=== PATIENT | male | born 1955 | race Two or more races ===

== ENCOUNTER 2017-06-29 17:05 | Emergency (ER) | payer OTHER ==
[~2017-06-29] VITALS: Ht 177.8 cm; Wt 66.2 kg
[~2017-06-29 17:05] MED LIST: ALBUTEROL SULF8.5 GM PO; ASPIRIN CHEW81 MG PO; CARAFATE1 GM/10 ML PO; MIRALAX17 GM PEG; PANTOPRAZOLE SO40 MG PO; PLAVIX75 MG PO; RYTHMOL150 MG PO; VERAPAMIL ER120 MG PO; VIBRAMYCIN TAB100 MG PO; Z PROPAFENONE PO; Z.0.ASPIRIN CHEW81 M PO; Z.0.CLEOCIN HCL300 M PO; Z.0.PLAVIX75 MG PO; Z.0.VALTREX1000 MG PO; [UNRECOGNIZED DRUG - OTHER] PO
--- OUTSIDE RECORDS SUMMARY | 2017-06-29 17:09 | XMS REPORT | Clinical Summary ---
Author Author [facility] Organization [facility] Address Unknown Phone Unavailable Care Team Providers Care Digital Product Specialist Name Role Phone Julius Haney DO PCP Allergies Active Allergy Reactions Severity Noted Date Comments Codeine Anxiety Low 07/20/2015 Current Medications Prescription Sig. Disp. Refills Start End Date Status Date propafenone (RHTHYMOL) Take 150 mg by mouth Active 150 MG tablet every 8 (eight) hours. clopidogrel (PLAVIX) 75 Take 75 mg by mouth Active mg tablet daily. verapamil (CALAN) 120 MG Take 120 mg by mouth Active tablet daily. linaclotide (LINZESS) 145 Take 145 mcg by mouth Active mcg capsule daily. pantoprazole (PROTONIX) Take 40 mg by mouth Active 40 MG EC tablet daily. FLUVIRIN 8484-0341, PF, 11/22/19 Active 45 mcg (15 mcg x 3)/0.5 16 mL syringe LYRICA 75 mg capsule as needed. 10/04/19 Active 16 neomycin-polymyxin 3 (three) times a day. Active B-dexameth (MAXITROL) 3.5 mg/g-10,000 unit/g-0.1 % ointment diazePAM (VALIUM) 5 MG Take 5 mg by mouth every Active tablet 6 (six) hours as needed for anxiety. cephalexin (KEFLEX) 500 Take 500 mg by mouth 4 Active MG capsule (four) times a day. ranitidine (ZANTAC) 150 Take 1 tablet (150 mg 30 tablet 3 06/26/19 06/26/19 Active MG tabletIndications: total) by mouth 2 (two) 18 19 Chronic otitis media of times a day. both ears ciprofloxacin-dexamethaso Administer 4 drops into 7.5 mL 1 09/08/19 09/15/19 ne (CIPRODEX) 0.3-0.1 % both ears 2 (two) times a 17 17 otic day for 7 days. suspensionIndications: 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 ofloxacin (FLOXIN) 0.3 % Administer 5 drops to the 10 mL 0 02/21/19 02/28/19 otic solutionIndications: right ear 2 (two) times a 18 Chronic otitis media of day for 7 days. both ears ofloxacin (FLOXIN) 0.3 % Administer 5 drops into 10 mL 1 05/16/19 otic solutionIndications: both ears daily for 10 18 18 Chronic tubotympanic days. suppurative otitis media of both ears amoxicillin (AMOXIL) 400 Take 5 mL (400 mg total) 150 mL 0 05/30/19 06/09/19 mg/5 mL by mouth 3 (three) times suspensionIndications: a day for 10 days. 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 SSS (sick sinus syndrome) 07/20/2015 Encounters Date Type Specialty Care Team Description 06/25/2017 Office Visit Otolaryngology Valentin Meek MD Chronic otitis media of both ears (Primary Dx); Sensorineural hearing loss (SNHL) of right ear, unspecified hearing status on contralateral side 05/29/2017 Office Visit Otolaryngology Valentin Meek MD 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 (Primary Dx) 05/15/2017 Office Visit Otolaryngology Valentin Meek MD 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 (Primary Dx) 02/21/2017 Office Visit Otolaryngology Valentin Meek MD Dysphagia, cricopharyngeal (Primary Dx); Chronic otitis media of both ears 09/21/2016 Office Visit Otolaryngology Valentin Meek MD Dysphagia, cricopharyngeal (Primary Dx); Chronic otitis media of both ears 09/07/2016 Office Visit Otolaryngology Valentin Meek MD Dysphagia, cricopharyngeal (Primary Dx); 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 after 06/28/2016 Family History Medical History Relation Name Comments Heart attack Father Heart disease Father Muscular dystrophy Mother Relation Name Status Comments Father Mother Social History Tobacco Use Types Packs/Day Years Used Date Former Smoker Smokeless Tobacco: Never Used Comments: quit 30 years ago Alcohol Use Drinks/Week oz/Week Comments No Sex Assigned at Date Recorded Not on file Last Filed Vital Signs Vital Sign Reading Time Taken Blood Pressure 110/75 05/29/2017 1:30 PM CDT Pulse 96 05/29/2017 1:30 PM CDT Temperature - - Respiratory Rate - - Oxygen Saturation - - Inhaled Oxygen - - Concentration Weight 64.9 kg (143 lb) 06/25/2017 2:50 PM CDT Height 177.8 cm (5' 10") 06/25/2017 2:50 PM CDT Body Mass Index 20.52 06/25/2017 2:50 PM CDT Plan of Treatment Health Maintenance Due Date Last Done Comments COLON CANCER SCREENING 2007 SHINGRIX VACCINE (#1) 2007 ZOSTER VACCINE 2017 INFLUENZA VACCINE 09/05/2017 Implants Implanted Type Area Environmental Conservation Officer Device Expiration Model / Identifier Date Serial / Lot Setrox S Steroid-Eluting Bipolar IPM N/A: N/A [employer] 2017 350 974 / Implantable Endocardial Bradycardia IMPLANT [id number] / Lead With Active Fixation DEVICES [id number] Electrically Active [place] 1.8mm Connector Is-1 Straight Ring Electrode Insulation Silicon Rubber 6.6fr 6.7fr Steroid [place] Setrox S 53 10mm 45/53/60cm - [id number] Implanted: 07/20/2015 (Quantity not on file) Setrox S Steroid-Eluting Bipolar IPM N/A: N/A [employer] 2017 350 974 / Implantable Endocardial Bradycardia IMPLANT [id number] / Lead With Active Fixation DEVICES [id number] Electrically Active [place] 1.8mm Connector Is-1 Straight Ring Electrode Insulation Silicon Rubber 6.6fr 6.7fr Steroid [place] Setrox S 53 10mm 45/53/60cm - [id number] Implanted: 07/20/2015 (Quantity not on file) Bayron Alves With Cls With IPM N/A: N/A [employer] 2016 [id number] / Home Monitoring - [id number] PACEMAKERS [id number] / Implanted: 07/20/2015 (Quantity not [id number] on file) Results Not on fileafter 06/28/2016 Insurance Payer Benefit Subscriber ID Type Phone Address Plan / Group TEXANPLUS TEXANPLUS xxxxxxxxx HMO MCR MYOTONIC DYSTROPHY MYOTONIC xxxxxx Indemnity DYSTROPHY SECONDARY MDA,MYOTONIC Other Other Home: [id number] [place] [address]
== END 2017-06-29 18:04 | disposition home or self-care (01) ==
LOC: ER 17:05
DX: Z00.6 Encounter for examination for normal comparison and control in clinical research program (principal); G71.0 Muscular dystrophy
CPT/HCPCS: 99282

== ENCOUNTER 2017-07-08 13:53 | Observation (INO) | payer OTHER ==
[~2017-07-08] VITALS: Ht 177.8 cm; Wt 60.3 kg
[2017-07-08] MEDS ORDERED: MIDAZOLAM HCL 2 MG/2 ML VIAL ONE (13:56)
[2017-07-08] MEDS ORDERED: FENTANYL CITRATE/PF 100MCG/2 ML INJ ONE (13:56)
--- OUTSIDE RECORDS SUMMARY | 2017-07-08 13:58 | XMS REPORT | Continuity of Care Document ---
Author Author [facility] Organization [facility] Address [address] [place] [address] Phone Unavailable Care Team Providers Care Lathe Winder Name Role Phone SHANNAN PÉREZ MD PCP Insurance Providers Guarantor Isaiah Maher Address [address] [place] [address] Email [email or web address] Payer [place] [employer] Policy Number [id number] Subscriber's Name Isaiah Maher Relationship 18 Self / Same As Patient Group Number [id number] Group Name [employer] - Medicare Advantage Divis Effective Date 16 Advance Directives Directive Response Recorded Date/Time Does the patient have an advance directive? No 02/24/16 7:30pm If yes, is advance directive on file with [facility]? No 02/24/16 7:30pm If not on file with [facility] will patient provide a copy? No 02/24/16 7:30pm Did patient receive Notice of Privacy Practices? Yes 03/11/10 7:30pm Did patient receive patient rights and responsibilities? Yes 03/11/10 7:30pm Problems Medical Problem Onset Date Status Dysphagia Unknown Partial small bowel obstruction 07/25/2014 Acute Medications Current Home Medications Medication Dose Units Route Directions Days Qty Instructions Start Date Aspirin (Aspirin Chew) 81 Mg Chew 81 Mg Oral Daily 30 Tab Clopidogrel Bisulfate (Plavix) 75 Mg Tablet 75 Mg Oral Daily 30 Tab Pantoprazole Sodium (Protonix) 40 Mg Tablet.dr 40 Mg Oral Twice Daily Before Meals Polyethylene Glycol 3350 (Miralax) 17 Gm Powd.pack Peg Tube Daily Propafenone Hcl (Rythmol) 150 Mg Tablet 150 Mg Oral Three Times A Day Sucralfate (Carafate) 1 Gm/10 Ml Oral.susp 1 Gm Oral Before Meals And At Bedtime Verapamil Hcl (Verapamil Er) 120 Mg Cap24h.pel 120 Mg Oral Daily Past Home Medications Medication Directions Ordered Status Albuterol Sulfate (Albuterol Sulfate Hfa) 8.5 Gm Hfa.aer.ad, 1 Inh Oral As Needed as needed for Shortness Of Breath Discontinued Aspirin (Aspirin Chew) 81 Mg Chew, 81 Mg Oral Daily Discontinued Captopril 25 Mg Tablet, 25 Mg Oral Daily Discontinued Clindamycin Hcl (Cleocin Hcl) 300 Mg Capsule, 300 Mg Oral Every 6 Hours Discontinued Doxycycline Hyclate (Vibramycin Tablet) 100 Mg Tab, 100 Mg Oral Twice A Day Discontinued Valacyclovir Hcl (Valtrex) 1,000 Mg Tablet, 1000 Mg Oral Twice A Day Discontinued Social History Social History Problem Response Recorded Date/Time Onset Date Status Hx Psychiatric Problems No 02/24/2016 7:30pm Not Applicable Not Applicable Hx Eating Disorder No 02/24/2016 7:30pm Not Applicable Not Applicable Hx Substance Use Disorder No 02/24/2016 7:30pm Not Applicable Not Applicable Hx Depression No 02/24/2016 7:30pm Not Applicable Not Applicable Hx Alcohol Use No 02/24/2016 7:30pm Not Applicable Not Applicable Hx Substance Use Treatment No 02/24/2016 7:30pm Not Applicable Not Applicable Hx Physical Abuse No 02/24/2016 7:30pm Not Applicable Not Applicable Hospital Discharge Instructions No hospital discharge instruction information available. Plan of Care Discharge Date 06/29/17 6:04pm Disposition HOME, SELF-CARE Condition at Discharge Stable Instructions/Education Provided GI Tube Care Forms Provided Work/School Excuse Prescriptions See Medication Section Referrals SHANNAN PÉREZ MD Address: [address] [place] [id number] Additional Instructions/Education HAVE YOUR STORE PERSON DOCTOR LOOK AT YOUR [facility] NEXT WEEK, OR COME BACK TO ed IF HAVING PAIN, LEAKING AROUND THE TUBE Functional Status No functional status information available. Allergies, Adverse Reactions, Alerts Allergen Type Severity Reaction Status Last Updated Codeine Allergy Mild Active 03/11/10 Immunizations No immunization information available. Vital Signs Acute Vital Signs Vital Response Date/Time Height 5 ft 10 in 06/29/2017 5:20pm Weight 146 lb 06/29/2017 5:20pm Body Mass Index 20.9 kg/m^2 06/29/2017 5:20pm Results No relevant diagnostic test, laboratory data and/or discharge summary information available. Procedures No procedure information available. Encounters Encounter Location Arrival/Admit Date Discharge/Depart Date Attending Provider Departed Emergency Room [facility] 06/29/17 5:05pm 6:04pm ANY CONN DO
--- OUTSIDE RECORDS SUMMARY | 2017-07-08 13:58 | XMS REPORT | Clinical Summary ---
Author Author [facility] Organization [facility] Address Unknown Phone Unavailable Care Team Providers Care Housemaid Name Role Phone Julius Haney DO PCP [...] Active 40 MG EC tablet daily. FLUVIRIN 4560-4244, PF, 11/22/19 Active 45 mcg (15 mcg [...] suppurative otitis media of both ears after 07/07/2016 Family History Medical History Relation Name Comments [...] INFLUENZA VACCINE 09/05/2017 Implants Implanted Type Area Cross Country Coach Device Expiration Model / Identifier Date Serial / Lot Setrox S Steroid-Eluting Bipolar IPM N/A: N/A [employer] 2017 350 974 / Implantable Endocardial Bradycardia IMPLANT [id number] / Lead With Active Fixation DEVICES [id number] Electrically Active [place] 1.8mm Connector Is-1 Straight Ring Electrode Insulation Silicon Rubber 6.6fr 6.7fr Steroid [place] Setrox S 53 10mm 45/53/60cm - [id number] Implanted: 07/20/2015 (Quantity not on file) Setrox S Steroid-Eluting Bipolar IPM N/A: N/A [employer] 2017 350 974 / Implantable Endocardial Bradycardia IMPLANT [id number] / Lead With Active Fixation DEVICES [id number] Electrically Active [place] 1.8mm Connector Is-1 Straight Ring Electrode Insulation Silicon Rubber 6.6fr 6.7fr Steroid [place] Setrox S 53 10mm 45/53/60cm - [id number] Implanted: 07/20/2015 (Quantity not on file) Bayron Alves With Cls With IPM N/A: N/A [employer] 2016 727858 / Home Monitoring - [id number] PACEMAKERS [id number] / Implanted: 07/20/2015 (Quantity not [id number] on file) Results Not on fileafter 07/07/2016 Insurance Payer Benefit Subscriber ID Type Phone Address Plan / Group TEXANPLUS TEXANPLUS xxxxxxxxx HMO MCR MYOTONIC DYSTROPHY MYOTONIC xxxxxx Indemnity DYSTROPHY SECONDARY MDA,MYOTONIC Other Other Home: [id number] [place] [address]
[2017-07-08] MEDS ORDERED: ONDANSETRON HCL INJ 2 MG/ML VIAL IV STA (14:13)
[2017-07-08] MEDS ORDERED: SODIUM CHLORIDE 0.9% 1000ML 1,000 ML IV STA (14:13)
[2017-07-08] MEDS ORDERED: GLUCAGON FOR INJ 1 MG VIAL ONE (14:40)
[2017-07-08] MEDS: SODIUM CHLORIDE 0.9% 1000ML 1,000 ML IV SCH ×4 (14:45→20:21)
[2017-07-08 14:52] LABS: BASOPHILS % 0.6 % (0.0-1.0); EOSINOPHILS % 0.3 % (0.0-6.0); HEMATOCRIT 52.5 % (38.2-49.6); HEMOGLOBIN 17.5 g/dL (14.0-18.0); LYMPHOCYTES # (AUTO) 1.7 (1.0-3.2); LYMPHOCYTES % 24.4 % (18.0-39.1); MEAN CORPUSCULAR HEMOGLOBIN 30.5 pg (28-32); MEAN CORPUSCULAR HGB CONC 33.3 g/dL (31-35); MEAN CORPUSCULAR VOLUME 91.5 fL (81-99); MONOCYTES # (AUTO) 0.8 (0.2-0.8); MONOCYTES % 11.4 % (4.4-11.3); NEUTROPHILS # (AUTO) 4.5 (2.1-6.9); NEUTROPHILS % 63.2 % (38.7-80.0); PLATELET COUNT 180 x10e3/uL (140-360); RED BLOOD COUNT 5.74 x10e6/uL (4.3-5.7); RED CELL DISTRIBUTION WIDTH 13.1 % (11.7-14.4)
--- NOTE | 2017-07-08 14:56 | Diagnostic Imaging Report ---
EXAMINATION: CHEST SINGLE (PORTABLE) INDICATION: \S\ERMD ORDER \S\[id number] \S\1436 \S\Y COMPARISON: Chest radiograph 02/24/2016 FINDINGS: AP view TUBES and LINES: 2-lead pacemaker device overlying the left upper hemithorax with leads overlying the right atrial appendage and right ventricle are unchanged in position. LUNGS: Lungs are well inflated. Lungs are clear. Mild central pulmonary vascular congestion. PLEURA: No pleural effusion or pneumothorax. HEART AND MEDIASTINUM: Stable mild enlargement of the cardiac silhouette. BONES AND SOFT TISSUES: No acute osseous lesion. Soft tissues are unremarkable. UPPER ABDOMEN: No free air under the diaphragm. IMPRESSION: Stable mild cardiomegaly with associated central pulmonary congestion. Signed by: Dr. Britney Vo M.D. on 07/08/2017 2:53 PM
[2017-07-08] MEDS ORDERED: GLUCAGON FOR INJ 1 MG VIAL IV ONE ×2 (15:00→16:45)
[2017-07-08 15:06] LABS: INR 1.09; PROTHROMBIN TIME 13.3 seconds (11.9-14.5)
[2017-07-08 15:07] LABS: PARTIAL THROMBOPLASTIN TIME 26.9 seconds (23.8-35.5)
[2017-07-08 15:18] LABS: ALANINE AMINOTRANSFERASE 31 IU/L (0-55); ALBUMIN 3.9 g/dL (3.5-5.0); ALBUMIN/GLOBULIN RATIO 0.9 (0.8-2.0); ALKALINE PHOSPHATASE 97 IU/L (40-150); AMYLASE 84 U/L (25-125); ANION GAP 14.6 mmol/L (8-16); BLOOD UREA NITROGEN 18 mg/dL (7-26); BUN/CREATININE RATIO 23 (6-25); CALCIUM 11.2 mg/dL (8.4-10.2); CARBON DIOXIDE 33 mmol/L (22-29); CHLORIDE 100 mmol/L (98-107); CREATINE KINASE 73 IU/L (30-200); CREATININE, SERUM 0.78 mg/dL (0.72-1.25); EST GLOMERULAR FILTRATION RATE > 60 ML/MIN (60-); GLUCOSE 112 mg/dL (74-118); LIPASE 16 U/L (8-78); MAGNESIUM 2.1 MG/DL (1.3-2.1); POTASSIUM 4.6 mmol/L (3.5-5.1); SODIUM 143 mmol/L (136-145)
[2017-07-08] MEDS ORDERED: PIPER-TAZ 3.375 GM 50 ML IV STA (15:22)
--- OUTSIDE RECORDS SUMMARY | 2017-07-08 15:43 | XMS REPORT ---
Author Author [facility] Address Unknown Phone Unavailable Care Team Providers Care Rubber Compounder Mixer Name Role Phone JORGE L HERNANDEZ Unavailable Unavailable Problems This patient has no known problems. Allergies, Adverse Reactions, Alerts This patient has no known allergies or adverse reactions. Medications This patient has no known medications. Results Test Description Test Time Test Comments Text Results Atomic Results Result Comments CHEST SINGLE (PORTABLE) [place] [address] Patient Name: CHILANGO MAHER MR #: [id number] : 1955 Age/Sex: 62/M Req #: [id number] Adm Physician: Ordered by: ALINA HARPER SILVERWARE WASHER Report #: [id number] Location: ER Room/Bed: Procedure: [id number] DX/CHEST SINGLE (PORTABLE) Exam Date: 07/08/17 Exam Time: 1436 REPORT STATUS: Signed EXAMINATION: CHEST SINGLE (PORTABLE) INDICATION: COMPARISON : Chest radiograph 02/24/2016 FINDINGS: AP view TUBES and LINES: 2-lead pacemaker device overlying the left upper hemithorax with leads overlying the right atrial appendage and right ventricle are unchanged in position. LUNGS: Lungs are well inflated. Lungs are clear. Mild central pulmonary vascular congestion. PLEURA: No pleural effusion or pneumothorax. HEART AND MEDIASTINUM: Stable mild enlargement of the cardiac silhouette. BONES AND SOFT TISSUES: No acute osseous lesion. Soft tissues are unremarkable. UPPER ABDOMEN: No free air under the diaphragm. IMPRESSION: Stable mild cardiomegaly with associated central pulmonary congestion. Signed by: Dr. Lashonda Lopez M.D. on 07/08/2017 2:53 PM Dictated By: LASHONDA LOPEZ MD [id number] Transcribed By: KARO on 07/08/17 9983 COPY TO: ALINA HARPER NP
--- OUTSIDE RECORDS SUMMARY | 2017-07-08 15:43 | XMS REPORT | Clinical Summary ---
Author Author [facility] Organization [facility] Address Unknown Phone Unavailable Care Team Providers Care Generator Assembler Name Role Phone Julius Haney DO PCP [...] Active 40 MG EC tablet daily. FLUVIRIN 4300-3561, PF, 11/22/19 Active 45 mcg (15 mcg [...] INFLUENZA VACCINE 09/05/2017 Implants Implanted Type Area Windows Security Analyst Device Expiration Model / Identifier Date Serial / Lot Setrox S Steroid-Eluting Bipolar IPM N/A: N/A [employer] 2017 350 974 / Implantable Endocardial Bradycardia IMPLANT [id number] / Lead With Active Fixation DEVICES [id number] Electrically Active [place] 1.8mm Connector Is-1 Straight Ring Electrode Insulation Silicon Rubber 6.6fr 6.7fr Steroid [place] Setrox S 53 10mm 45/53/60cm - [id number] Implanted: 07/20/2015 (Quantity not on file) Setrox S Steroid-Eluting Bipolar IPM N/A: N/A [employer] 2017 350 974 / Implantable Endocardial Bradycardia IMPLANT [id number] / Lead With Active Fixation DEVICES [id number] Electrically Active [place] 1.8mm Connector Is-1 Straight Ring Electrode Insulation Silicon Rubber 6.6fr 6.7fr Steroid [place] Setrox S 53 10mm 45/53/60cm - [id number] Implanted: 07/20/2015 (Quantity not on file) Bayron Alves With Cls With IPM N/A: N/A [employer] 2016 [id number] / Home Monitoring - [id number] PACEMAKERS [id number] / Implanted: 07/20/2015 (Quantity not [id number] on file) Results Not on fileafter 07/07/2016 Insurance Payer Benefit Subscriber ID Type Phone Address Plan / Group TEXANPLUS TEXANPLUS xxxxxxxxx HMO MCR MYOTONIC DYSTROPHY MYOTONIC xxxxxx Indemnity DYSTROPHY SECONDARY MDA,MYOTONIC Other Other Home: [address] [place] [address]
[2017-07-08 16:24] VITALS: BP 134/88
[2017-07-08] MEDS ORDERED: SEVOFLURANE INHAL SOLN 250 ML PEN BTL ONE (17:42)
[2017-07-08] MEDS ORDERED: PROPOFOL IV EMULSION 10 MG/ML 20 ML VIAL ONE (17:42)
[2017-07-08] MEDS ORDERED: LIDOCAINE HCL 2% LOCAL INJ 5 ML SDV VIAL INJ ONE (17:42)
[2017-07-08 17:52] VITALS: BP 134/88
[2017-07-08 18:02] VITALS: BP 134/88
[2017-07-08 20:04] LABS: CALCIUM 9.3 mg/dL (8.4-10.2)
[2017-07-08 20:07] LABS: CALCIUM IONIZED 1.2 mmol/L (1.09-1.30)
[2017-07-08] MEDS: SUCRALFATE 1 GM/10 ML SUSP NG SCH ×2 (20:20→20:31)
[2017-07-08 20:53] VITALS: BP 105/69
[2017-07-09] VITALS (7 sets, daily range): BP systolic 113–125; BP diastolic 63–79
[2017-07-09] MEDS: SODIUM CHLORIDE 0.9% 1000ML 1,000 ML IV SCH ×2 (02:13→04:43)
[2017-07-09] MEDS ORDERED: PANTOPRAZOLE SOD 40 MG TABEC PO SCH (07:30)
[2017-07-09] MEDS: SUCRALFATE 1 GM/10 ML SUSP NG SCH ×5 (07:30→22:54)
--- NOTE | 2017-07-09 08:49 | Consultation ---
DATE OF CONSULTATION: July 08, 2017 Mr. Elizabeth is a 61-year-old gentleman who I have seen in the office several times. He carries a history of hypertension and muscular dystrophy. We saw him in the office with symptoms of epigastric discomfort and dyspepsia. His workup in the office with upper endoscopy in January 2017 showed mild gastritis. Negative for Helicobacter pylori. Feeding tube in place. The patient was treated for acid reflux syndrome. He came to the emergency room after he ate a meal. It had fish in it, and felt that the food was stuck in his throat. He was admitted for upper endoscopy with food removal from the esophagus. MEDICINES: At home he takes Verapamil, Rythmol, Plavix, MiraLAX, Protonix, Align, Carafate. SURGERIES: He had a feeing tube in place and he had colonoscopy in 2012. That report is not available. FAMILY HISTORY: Unremarkable. SOCIAL: He is and has children. He does not drink or smoke. ALLERGIES: CODEINE. PHYSICAL EXAMINATION GENERAL: Awake, alert and oriented. VITALS: Temperature 97.5, pulse 74, blood pressure 134/88. NECK: Supple. LUNGS: Clear. HEART: Irregularly irregular. Occasional irregular beat and a 2/6 soft systolic murmur. ABDOMEN: Soft and nontender. No acute signs. Nondistended. EXTREMITIES: No edema. LAB DATA: On admission, magnesium 2, calcium 11. Liver function normal. Amylase and lipase normal. Sodium and potassium normal. BUN and creatinine normal. PT and PTT are normal. Hemoglobin 17, hematocrit 32, and platelets 180,000. White cell count is 7. Chest x-ray unremarkable. IMPRESSION: Food stuck in the esophagus. Will admit for immediate upper endoscopy. Will start him in antacid treatment. Also, will be consulting speech therapist to evaluate his swallowing mechanism. His calcium is 11. Will recheck the calcium level and get ionized calcium level. Job#: [id number] SHEILA
--- NOTE | 2017-07-09 09:42 | History and Physical ---
OBSERVATION PCP: Dr. Weston Haney CHIEF COMPLAINT: Esophageal impaction. HISTORY: This is a 62-year-old male with progressive worsening muscular dystrophy. The patient had a PEG tube in place. However, he insists on eating and he has had food impacted in his esophagus. Patient had EGD with removal of the content. The patient is otherwise stable at this time. PAST MEDICAL HISTORY: Muscular dystrophy, dysphagia, feeding tube, atrial fibrillation, pacemaker. SOCIAL HISTORY: Patient lives at home. His is taking care of him. ALLERGIES: CODEINE. HOME MEDICATIONS: List will be reviewed. REVIEW OF SYSTEMS: Dysphagia and reflux. Generalized weakness due to muscular dystrophy and muscular atrophy. PHYSICAL EXAMINATION VITAL SIGNS: Temperature is 98, blood pressure 121/69, pulse rate 76, respirations 18. GENERAL: The patient is weak and debilitated. Progressive weight loss. HEENT: Normocephalic, atraumatic and anicteric. NECK: Supple grossly. PULMONARY: Diminished breath sounds. CARDIOVASCULAR: Regular rate and rhythm. Pacemaker. ABDOMEN: Soft. Cachexia. G-tube in place. EXTREMITIES: No cyanosis or edema. NEUROLOGIC: Muscular dystrophy, generalized weakness and muscular atrophy. LABORATORY: Sodium 143, potassium 4.6, chloride 100, bicarb 33, BUN is 18, creatinine 0.7, glucose 112. WBC 7, hemoglobin 17, hematocrit 52, and platelets 180,000. IMPRESSION 1. Muscular dystrophy, progressive: Causing multiple problems, including dysphagia, severe reflux therapy. Tube feeding and weight loss. 2. Dehydration. 3. Esophageal impaction: Status post esophagogastroduodenoscopy. PLAN: Continue with PPI. Nothing by mouth. Use the G-tube for feeding. Supportive measures. Arrange for home health. Job#: [id number] MD
[2017-07-09] MEDS: FAMOTIDINE 20 MG TAB GT SCH ×2 (10:29→17:40)
[2017-07-09] MEDS: PANTOPRAZOLE 40 MG 10ML VIAL IV SCH ×2 (10:30→17:40)
[2017-07-09] MEDS: METOCLOPRAMIDE HCL 10MG/10ML UDC GT SCH ×3 (10:30→23:04)
[2017-07-09] MEDS: SODIUM CHLORIDE 0.45% 1,000 ML IV SCH ×2 (10:40→22:54)
--- NOTE | 2017-07-09 13:28 | Diagnostic Imaging Report ---
PROCEDURE:MODIFIED BA. SWALLOW COMPARISON:None. INDICATIONS:Dysphasia. DISCUSSION: Fluoroscopic examination was performed in conjunction with speech pathology during swallowing of a variety of thin and thick liquid consistencies. RADIATION DOSE: Total Time: 1.5 min Cumulative air kerma: 8.04 mGy FINDINGS: PREMATURE SPILLAGE: Over the base of the tongue: None To vallecula: None To pyriform sinus: None LARYNGEAL PENETRATION: None. ASPIRATION: None. RESIDUE: VALLECULA: Severe PYRIFORM SINUS: Severe PHARYNGEAL WALL: Mild to moderate BASE OF TONGUE: Mild to moderate Severe reflux was identified. CONCLUSION: 1. No penetration or aspiration. Please see report from speech pathology for complete details. 2. Severe residue in the vallecula and piriform sinus. 3. Severe gastroesophageal reflux. Dictated by: Reed Goldberg M.D. on 07/09/2017 at 13:30 Electronically approved by: Reed Goldberg M.D. on 07/09/2017 at 13:30
[2017-07-09] MEDS: PROPAFENONE HCL 150 MG TAB PO SCH (21:00)
[2017-07-09] MEDS: VERAPAMIL HCL 80 MG TAB PO SCH (22:00)
--- NOTE | 2017-07-09 22:03 | Progress Note ---
DATE: July 09, 2017 GASTROENTEROLOGY PROGRESS NOTE Mr. Elizabeth is doing well. No change from yesterday. Swallowing evaluation was done and revealed considerable trouble swallowing, and a large amount of residual of food content put him at high risk for aspiration. So, the advice was to keep him n.p.o. with pleasure only, occasionally liquid to puree diet. Besides this, no change. Will follow the recommendation of speech therapist and will be discharged probably home tomorrow. Job#: [id number] EV
[2017-07-10] VITALS: BP 95/65
[2017-07-10 04:00] VITALS: BP 103/63
[2017-07-10] MEDS: METOCLOPRAMIDE HCL 10MG/10ML UDC GT SCH ×2 (05:34→12:00)
[2017-07-10] MEDS: VERAPAMIL HCL 80 MG TAB PO SCH (05:38)
[2017-07-10 06:56] LABS: BASOPHILS % 0.4 % (0.0-1.0); EOSINOPHILS # (AUTO) 0.1 (0.0-0.4); EOSINOPHILS % 0.7 % (0.0-6.0); HEMATOCRIT 44.4 % (38.2-49.6); HEMOGLOBIN 14.7 g/dL (14.0-18.0); LYMPHOCYTES # (AUTO) 1.9 (1.0-3.2); MEAN CORPUSCULAR HEMOGLOBIN 31.1 pg (28-32); MEAN CORPUSCULAR HGB CONC 33.1 g/dL (31-35); MEAN CORPUSCULAR VOLUME 94.1 fL (81-99); MONOCYTES % 11.9 % (4.4-11.3); NEUTROPHILS # (AUTO) 5.3 (2.1-6.9); NEUTROPHILS % 63.8 % (38.7-80.0); PLATELET COUNT 133 x10e3/uL (140-360); RED BLOOD COUNT 4.72 x10e6/uL (4.3-5.7); RED CELL DISTRIBUTION WIDTH 13.3 % (11.7-14.4)
[2017-07-10 07:11] LABS: ANION GAP 11.2 mmol/L (8-16); BLOOD UREA NITROGEN 10 mg/dL (7-26); BUN/CREATININE RATIO 17 (6-25); CALCIUM 9.1 mg/dL (8.4-10.2); CARBON DIOXIDE 31 mmol/L (22-29); CHLORIDE 105 mmol/L (98-107); CREATININE, SERUM 0.59 mg/dL (0.72-1.25); EST GLOMERULAR FILTRATION RATE > 60 ML/MIN (60-); GLUCOSE 79 mg/dL (74-118); POTASSIUM 4.2 mmol/L (3.5-5.1); SODIUM 143 mmol/L (136-145)
[2017-07-10 08:12] VITALS: BP 105/66
[2017-07-10] MEDS: PANTOPRAZOLE 40 MG 10ML VIAL IV SCH (08:33)
[2017-07-10] MEDS: SUCRALFATE 1 GM/10 ML SUSP NG SCH ×2 (08:33→11:30)
[2017-07-10] MEDS: PROPAFENONE HCL 150 MG TAB PO SCH (08:33)
[2017-07-10] MEDS: FAMOTIDINE 20 MG TAB GT SCH (08:33)
[2017-07-10] MEDS ORDERED: CLOPIDOGREL BISULFATE 75 MG TAB PO SCH (09:00)
[2017-07-10] MEDS ORDERED: POLYETHYLENE GLYCOL 3350 17 GM PACK PEG SCH (09:00)
[2017-07-10] MEDS ORDERED: ASPIRIN 81 MG CHEW TAB PO SCH (09:00)
--- NOTE | 2017-07-10 09:47 | Discharge Summary ---
OBSERVATION PCP: Dr. Weston Haney CONSULTANTS: Dr. Sweta Nunez FINAL DIAGNOSES 1. Food impaction of the esophagus. 2. Baseline muscular dystrophy with gastric tube feeding. A 62-year-old male kept eating and got food stuck in his esophagus. He does have muscular dystrophy. Discussed with patient at length. Advised the patient not to eat any solid food. The patient is stable. He should use his G-tube. Adjust his medications to be crushed and given through the G-tube. The patient expressed understanding. The patient will go home today. Follow up with Dr. Weston Haney in approximately 1-2 weeks and follow up with Dr. Sweta Nunez for his reflux treatment. Job#: [id number] SHEILA
[2017-07-10] MEDS: SODIUM CHLORIDE 0.45% 1,000 ML IV SCH (11:40)
[2017-07-10 12:12] VITALS: BP 120/81
[2017-07-10] MEDS ORDERED: ALBUTEROL/IPRATROPIUM 3 ML NEB NEB ONE (13:04)
[2017-07-10] MEDS ORDERED: ALBUTEROL/IPRATROPIUM 3 ML NEB ONE (13:04)
--- NOTE | 2017-07-13 12:34 | Progress Note ---
DATE: July 10, 2017 GASTROENTEROLOGY PROGRESS NOTE SUBJECTIVE: Today Mr. Elizabeth is doing well. As noted, his barium swallow with speech therapy evaluation revealed aspiration and he was advised only to use his feeding tube for nutrition. Patient will be going home today. No other GI issue to mention. Hemodynamically stable, physical exam unremarkable, and I will switch his antacid medication to Nexium liquid through the PEG tube and Carafate liquid. Since he is on Plavix, I advised him to take the Plavix and the Nexium about 12 hours apart. Will follow him as an outpatient. Job#: [id number] EV
== END 2017-07-10 13:39 | disposition home health service (06) ==
LOC: ER 13:53 → ERHOLD 15:40 → IMCU 16:00
PROVIDERS: ADMIT Internal Medicine; ATTEND Internal Medicine
DX: T18.128A Food in esophagus causing other injury, initial encounter (principal); I10 Essential (primary) hypertension; G71.0 Muscular dystrophy; Z93.1 Gastrostomy status; R13.10 Dysphagia, unspecified; Z95.0 Presence of cardiac pacemaker; I48.91 Unspecified atrial fibrillation; Z79.01 Long term (current) use of anticoagulants; Z88.5 Allergy status to narcotic agent; E86.0 Dehydration; K21.9 Gastro-esophageal reflux disease without esophagitis; K44.9 Diaphragmatic hernia without obstruction or gangrene; K29.70 Gastritis, unspecified, without bleeding
CPT/HCPCS: 36415 ×2; 43235; 71045; 74230; 80048; 80053; 82150; 82310; 82330; 82550; 82553; 83605; 83690; 83735; 84484; 85025 ×2; 85610; 85730; 87040; 92611; 93005; 94640; 97116; 97161; 99284; G0378 ×3; J1610; J2001; J2250; J2405; J7030 ×2

== ENCOUNTER 2017-07-12 11:26 | Observation (INO) | payer OTHER ==
[~2017-07-12] VITALS: Ht 177.8 cm; Wt 60.3 kg
--- OUTSIDE RECORDS SUMMARY | 2017-07-12 13:38 | XMS REPORT | Continuity of Care Document ---
Author Author [facility] Organization [facility] Address [address] [place] [address] [place] [address] Phone Unavailable Care Team Providers Care Outpatient Scheduler Name Role Phone CHRISTIE TAPIA DO PCP Insurance Providers Guarantor Isaiah Maher Address [address] [place] [address] Email [email or web address] Payer [employer] Policy Number [id number] Subscriber's Name Isaiah Maher Relationship 18 Self / Same As Patient Group Number [id number] Group Name [employer] - Medicare Advantage Divis Effective Date 17 Advance Directives Directive Response Recorded Date/Time Does the patient have an advance directive? No 07/08/17 5:56pm If yes, is advance directive on file with [facility]? No 07/08/17 5:56pm If not on file with [facility] will patient provide a copy? No 07/08/17 5:56pm Do you have a Directive to Physician? No 07/08/17 2:18pm Do you have a Medical Power of Gravity Meter Observer? No 06/03/18 2:18pm Do you have an out of hospital Do Not Resuscitate Order? No 07/08/17 2:18pm Do you have any special needs we should be aware of? No 07/08/17 2:18pm Do you have a support person here with you today? Yes 07/08/17 2:18pm Did patient receive Notice of Privacy Practices? Yes 03/11/10 7:30pm Did patient receive patient rights and responsibilities? Yes 03/11/10 7:30pm Problems Medical Problem Onset Date Status Dysphagia Unknown Food impaction of esophagus Unknown Partial small bowel obstruction 07/25/2014 Acute [...] Gm Oral Before Meals And At Bedtime Past Home Medications Medication Directions Ordered Status [...] 1000 Mg Oral Twice A Day Discontinued Verapamil Hcl (Verapamil Er) 120 Mg Cap24h.pel, 120 Mg Oral Daily Discontinued Social History Social History Problem Response Recorded Date/Time Onset Date Status Hx Psychiatric Problems No 02/24/2016 7:30pm Not Applicable Not Applicable Hx Eating Disorder No 07/08/2017 5:56pm Not Applicable Not Applicable Hx Substance Use Disorder No 07/08/2017 5:56pm Not Applicable Not Applicable Hx Depression No 02/24/2016 7:30pm Not Applicable Not Applicable Hx Alcohol Use Yes 07/08/2017 5:56pm Not Applicable Not Applicable Hx Substance Use Treatment No 07/08/2017 5:56pm Not Applicable Not Applicable Hx Physical Abuse No 07/08/2017 5:56pm Not Applicable Not Applicable Hospital Discharge Instructions No hospital discharge instruction information available. Plan of Care Discharge Date 07/10/17 1:39pm Disposition HOME, SELF-CARE Instructions/Education Provided Aspiration Prescriptions See Medication Section Referrals IRA CABA MD (Gastroenterology) Entered Date: 07/10/2017 12:47pm Address: [address] [place] [id number] Additional Instructions/Education TAKE NEXIUM IN THE MORNING TAKE PAVIX IN THE EVENING TAKE NEXIUM/PLAVIX 12 HOURS APART DO NOT TAKE TOGETHER FOLLOW UP WITH [employer]CHOOL [employer] TE[employer]ER Functional Status Query Response Date Recorded FUNCTIONAL STATUS . July 10, 2017 12:04pm Ambulation Ability Standby Assistance July 08, 2017 6:02pm Toileting Ability Standby Assistance July 08, 2017 6:02pm Allergies, Adverse Reactions, Alerts Allergen Type Severity Reaction Status Last Updated Codeine Allergy Mild Active 07/08/17 Immunizations No immunization information available. Vital Signs Acute Vital Signs Vital Response Date/Time Temperature (Fahrenheit) 96.0 degrees F (97.6 - 99.5) 07/10/2017 12:12pm Pulse Pulse Rate (adult) 93 bpm (60 - 90) 07/10/2017 1:37pm Respiratory Rate 18 bpm (12 - 24) 07/10/2017 1:37pm Blood Pressure 120/81 mm Hg 07/10/2017 12:12pm Height 5 ft 10 in 07/08/2017 2:14pm Weight 133 lb 07/08/2017 5:56pm Body Mass Index 19.1 kg/m^2 07/08/2017 5:56pm Results Laboratory Results Test Name Result Units Flags Reference Collection Date/Time Result Date/ Time Comments White Blood Count 8.38 x10e3/uL 4.8-10.8 07/10/2017 6:30am 07/10/2017 7 :03am Red Blood Count 4.72 x10e6/uL 4.3-5.7 07/10/2017 6:30am 07/10/2017 7: 03am Hemoglobin 14.7 g/dL 14.0-18.0 07/10/2017 6:30am 07/10/2017 7:03am Hematocrit 44.4 % 38.2-49.6 07/10/2017 6:07/10/2017 7:03am Mean Corpuscular Volume 94.1 fL 81-99 07/10/2017 6:07/10/2017 7: 03am Mean Corpuscular Hemoglobin 31.1 pg 28-32 07/10/2017 6:07/10/2017 7:03am Mean Corpuscular Hemoglobin Concent 33.1 g/dL 31-35 07/10/2017 6:07/10/2017 7:03am Red Cell Distribution Width 13.3 % 11.7-14.4 07/10/2017 6:2017 7:03am Platelet Count 133 x10e3/uL L 140-360 07/10/2017 6:07/10/2017 7: 03am Neutrophils (%) (Auto) 63.8 % 38.7-80.0 07/10/2017 6:07/10/2017 7: 03am Lymphocytes (%) (Auto) 23.0 % 18.0-39.1 07/10/2017 6:07/10/2017 7: 03am Monocytes (%) (Auto) 11.9 % H 4.4-11.3 07/10/2017 6:07/10/2017 7: 03am Eosinophils (%) (Auto) 0.7 % 0.0-6.0 07/10/2017 6:07/10/2017 7: 03am Basophils (%) (Auto) 0.4 % 0.0-1.0 07/10/2017 6:07/10/2017 7:03am IM GRANULOCYTES % 0.2 % 0.0-1.0 07/10/2017 6:07/10/2017 7:03am Neutrophils # (Auto) 5.3 2.1-6.9 07/10/2017 6:07/10/2017 7:03am Lymphocytes # (Auto) 1.9 1.0-3.2 07/10/2017 6:07/10/2017 7:03am Monocytes # (Auto) 1.0 H 0.2-0.8 07/10/2017 6:07/10/2017 7:03am Eosinophils # (Auto) 0.1 0.0-0.4 07/10/2017 6:30am 07/10/2017 7:03am Basophils # (Auto) 0.0 0.0-0.1 07/10/2017 6:30am 07/10/2017 7:03am Absolute Immature Granulocyte (auto 0.02 x10e3/uL 0-0.1 07/10/2017 6: 30am 07/10/2017 7:03am Prothrombin Time 13.3 seconds 11.9-14.5 07/08/2017 2:15pm 07/08/2017 3: 14pm Prothromb Time International Ratio 1.09 07/08/2017 2:15pm 2017 3:14pm Oral Anticoagulant Therapy INR Values: 1. Low Intensity Therapy 1.5 - 2.0 2. Moderate Intensity Therapy 2.0 - 3.0 3. High Intensity Therapy(1) 2.5 - 3.5 4. High Intensity Therapy(2) 3.0 - 4.0 5. Panic Value INR > 5.0 Activated Partial Thromboplast Time 26.9 seconds 23.8-35.5 07/08/2017 2: 15pm 07/08/2017 3:14pm Sodium Level 143 mmol/L 136-145 07/10/2017 6:3007/10/2017 7:12am Ionized Calcium 1.2 mmol/L 1.09-1.30 07/08/2017 7:34pm 07/08/2017 8: 07pm Potassium Level 4.2 mmol/L 3.5-5.1 07/10/2017 6:3007/10/2017 7:12am Chloride Level 105 mmol/L 98-107 07/10/2017 6:30am 07/10/2017 7:12am Carbon Dioxide Level 31 mmol/L H 22-29 07/10/2017 6:30am 07/10/2017 7: 12am Anion Gap 11.2 mmol/L 8-16 07/10/2017 6:30am 07/10/2017 7:12am Blood Urea Nitrogen 10 mg/dL 7-07/10/2017 6:30am 07/10/2017 7:12am Creatinine 0.59 mg/dL L 0.72-1.25 07/10/2017 6:30am 07/10/2017 7:12am BUN/Creatinine Ratio 17 6-25 07/10/2017 6:30am 07/10/2017 7:12am Estimat Glomerular Filtration Rate > 60 ML/MIN 60- 07/10/2017 6:30am 7:12am Ranges were taken from the National Kidney Disease Education Program and the National Kidney Foundation literature. Reference ranges: 60 or greater: Normal 16-59 (for 3 consecutive months): Chronic kidney disease 15 or less: Kidney failure Glucose Level 79 mg/dL 74-118 07/10/2017 6:30am 07/10/2017 7:12am Calcium Level 9.1 mg/dL 8.4-10.2 07/10/2017 6:30am 07/10/2017 7:12am Lactic Acid Level 32.4 MG/DL H 4.5-19.8 07/08/2017 2:15pm 07/08/2017 3: 13pm Magnesium Level 2.1 MG/DL 1.3-2.1 07/08/2017 2:15pm 07/08/2017 3:22pm Total Bilirubin 0.7 mg/dL 0.2-1.2 07/08/2017 2:15pm 07/08/2017 3:22pm Aspartate Amino Transf (AST/SGOT) 32 IU/L 5-34 07/08/2017 2:15pm 2017 3:22pm Alanine Aminotransferase (ALT/SGPT) 31 IU/L 0-55 07/08/2017 2:15pm 04/2017 3:22pm Total Protein 8.2 g/dL H 6.5-8.1 07/08/2017 2:15pm 07/08/2017 3:22pm Albumin 3.9 g/dL 3.5-5.0 07/08/2017 2:15pm 07/08/2017 3:22pm Globulin 4.3 g/dL H 2.3-3.5 07/08/2017 2:15pm 07/08/2017 3:22pm Albumin/Globulin Ratio 0.9 0.8-2.0 07/08/2017 2:15pm 07/08/2017 3: 22pm Alkaline Phosphatase 97 IU/L 40-150 07/08/2017 2:15pm 07/08/2017 3: 22pm Creatine Kinase 73 IU/L 30-200 07/08/2017 2:15pm 07/08/2017 3:22pm Creatine Kinase MB 1.90 ng/mL 0-5.0 07/08/2017 2:15pm 07/08/2017 3: 27pm Troponin I 0.009 ng/mL 0-0.300 07/08/2017 2:15pm 07/08/2017 3:27pm Amylase Level 84 U/L 25-125 07/08/2017 2:15pm 07/08/2017 3:22pm Lipase 16 U/L 8-78 07/08/2017 2:15pm 07/08/2017 3:22pm Microbiology Results Procedure Source Organism/Result Collection Date/Time Result Date/Time Result Status Blood Culture Blood NO GROWTH AFTER 24 HOURS 07/08/2017 3:35pm 07/09/2017 3:49pm Preliminary Procedures Procedure Status Date Provider(s) EGD (esophagogastroduodenoscopy) Completed 07/08/17 IRA CABA MD Encounters Encounter Location Arrival/Admit Date Discharge/Depart Date Attending Provider Discharged Inpatient (obs) [facility] 07/08/17 3:40pm 06/22 1:39pm ANY HEBERT MD Departed Emergency Room [facility] 06/29/17 5:05pm 6:04pm ANY CONN DO
--- OUTSIDE RECORDS SUMMARY | 2017-07-12 13:38 | XMS REPORT | Clinical Summary ---
Author Author [facility] Organization [facility] Address Unknown Phone Unavailable Care Team Providers Care Ag Service Manager Name Role Phone Julius Haney DO PCP [...] Active 40 MG EC tablet daily. FLUVIRIN [id number], PF, 11/22/19 Active 45 mcg (15 mcg [...] suppurative otitis media of both ears after 07/11/2016 Family History Medical History Relation Name Comments [...] INFLUENZA VACCINE 09/05/2017 Implants Implanted Type Area Mannequin Coloring Artist Device Expiration Model / Identifier Date Serial / Lot Setrox S Steroid-Eluting Bipolar IPM N/A: N/A [employer] 2017 350 974 / Implantable Endocardial Bradycardia IMPLANT [id number] / Lead With Active Fixation DEVICES [id number] Electrically Active [place] 1.8mm Connector Is-1 Straight Ring Electrode Insulation Silicon Rubber 6.6fr 6.7fr Steroid [place] Setrox S 53 10mm 45/53/60cm - [id number] Implanted: 07/20/2015 (Quantity not on file) Setrox S Steroid-Eluting Bipolar IPM N/A: N/A [employer] 2017 350 974 / Implantable Endocardial Bradycardia IMPLANT [id number] / Lead With Active Fixation DEVICES [id number] Electrically Active [place] 1.8mm Connector Is-1 Straight Ring Electrode Insulation Silicon Rubber 6.6fr 6.7fr Steroid [place] Setrox S 53 10mm 45/53/60cm - [id number] Implanted: 07/20/2015 (Quantity not on file) Bayron Alves With Cls With IPM N/A: N/A [employer] 2016 [id number] / Home Monitoring - [id number] [employer]AKERS [id number] / Implanted: 07/20/2015 (Quantity not [id number] on file) Results Not on fileafter 07/11/2016 Insurance Payer Benefit Subscriber ID Type Phone Address Plan / Group TEXANPLUS TEXANPLUS xxxxxxxxx HMO MCR MYOTONIC DYSTROPHY MYOTONIC xxxxxx Indemnity DYSTROPHY SECONDARY MDA,MYOTONIC Other Other Home: [id number] [place] [address]
[2017-07-12 14:35] LABS: BASOPHILS % 0.2 % (0.0-1.0); EOSINOPHILS # (AUTO) 0.1 (0.0-0.4); EOSINOPHILS % 1.5 % (0.0-6.0); HEMATOCRIT 44.6 % (38.2-49.6); HEMOGLOBIN 14.9 g/dL (14.0-18.0); LYMPHOCYTES # (AUTO) 1.5 (1.0-3.2); LYMPHOCYTES % 22.4 % (18.0-39.1); MEAN CORPUSCULAR HEMOGLOBIN 30.8 pg (28-32); MEAN CORPUSCULAR HGB CONC 33.4 g/dL (31-35); MEAN CORPUSCULAR VOLUME 92.3 fL (81-99); MONOCYTES # (AUTO) 0.7 (0.2-0.8); NEUTROPHILS # (AUTO) 4.3 (2.1-6.9); NEUTROPHILS % 65.6 % (38.7-80.0); PLATELET COUNT 153 x10e3/uL (140-360); RED BLOOD COUNT 4.83 x10e6/uL (4.3-5.7); RED CELL DISTRIBUTION WIDTH 13.4 % (11.7-14.4)
[2017-07-12 14:41] LABS: ABG HCO3 33 mmol/L (23-28); ABG PCO2 46 mmHg (41-51); ABG PH 7.46 (7.31-7.41); ABG PO2 155 mmHg (80-105)
[2017-07-12 14:50] LABS: ALANINE AMINOTRANSFERASE 28 IU/L (0-55); ALBUMIN 3.4 g/dL (3.5-5.0); ALKALINE PHOSPHATASE 79 IU/L (40-150); ANION GAP 10.4 mmol/L (8-16); BLOOD UREA NITROGEN 11 mg/dL (7-26); BUN/CREATININE RATIO 18 (6-25); CALCIUM 9.9 mg/dL (8.4-10.2); CARBON DIOXIDE 32 mmol/L (22-29); CHLORIDE 102 mmol/L (98-107); CREATININE, SERUM 0.61 mg/dL (0.72-1.25); EST GLOMERULAR FILTRATION RATE > 60 ML/MIN (60-); GLUCOSE 96 mg/dL (74-118); POTASSIUM 4.4 mmol/L (3.5-5.1); SODIUM 140 mmol/L (136-145)
--- NOTE | 2017-07-12 15:03 | Diagnostic Imaging Report ---
PROCEDURE: Frontal and lateral views of the chest. COMPARISON: Patients [facility], , CHEST SINGLE (PORTABLE), 07/08/2017, 14:41. INDICATIONS: RESPIRATORY FAILURE FINDINGS: Lines/tubes: Stable left upper chest dual-lead cardiac device, with distal tips projecting in the right atrium and right ventricle. Lungs: The lungs are well inflated and grossly clear. There is no evidence of consolidation or pulmonary edema. Pleura: There is no pleural effusion or pneumothorax. Heart and mediastinum: The heart and the mediastinum are normal. Bones: No acute bony abnormality. IMPRESSION: 1. No acute cardiopulmonary abnormalities. Eron Mauro M.D. Dictated by: Eron Mauro M.D. on 07/12/2017 at 15:05 Electronically approved by: Eron Mauro M.D. on 07/12/2017 at 15:05
[2017-07-12] MEDS: PROPAFENONE HCL 150 MG TAB PO SCH ×2 (15:30→22:38)
[2017-07-12] MEDS: CEFTRIAXONE SOD 1 GM VIAL IV SCH (15:30)
[2017-07-12] MEDS ORDERED: ALBUTEROL SULF 0.083% NEB SOLN 3 ML NEB NEB PRN (15:45)
[2017-07-12] MEDS: PANTOPRAZOLE SOD 40 MG TABEC PO SCH (16:30)
[2017-07-12] MEDS: SUCRALFATE 1 GM/10 ML SUSP PO SCH ×2 (16:30→22:37)
[2017-07-12 17:23] LABS: BASOPHILS % 0.3 % (0.0-1.0); EOSINOPHILS # (AUTO) 0.1 (0.0-0.4); EOSINOPHILS % 1.5 % (0.0-6.0); HEMATOCRIT 45.6 % (38.2-49.6); HEMOGLOBIN 14.9 g/dL (14.0-18.0); LYMPHOCYTES # (AUTO) 1.4 (1.0-3.2); LYMPHOCYTES % 24.8 % (18.0-39.1); MEAN CORPUSCULAR HEMOGLOBIN 30.3 pg (28-32); MEAN CORPUSCULAR HGB CONC 32.7 g/dL (31-35); MEAN CORPUSCULAR VOLUME 92.7 fL (81-99); MONOCYTES # (AUTO) 0.6 (0.2-0.8); MONOCYTES % 10.3 % (4.4-11.3); NEUTROPHILS # (AUTO) 3.6 (2.1-6.9); NEUTROPHILS % 62.8 % (38.7-80.0); PLATELET COUNT 142 x10e3/uL (140-360); RED BLOOD COUNT 4.92 x10e6/uL (4.3-5.7); RED CELL DISTRIBUTION WIDTH 13.6 % (11.7-14.4)
[2017-07-12 17:39] LABS: ALANINE AMINOTRANSFERASE 28 IU/L (0-55); ALBUMIN 3.3 g/dL (3.5-5.0); ALKALINE PHOSPHATASE 76 IU/L (40-150); ANION GAP 12.4 mmol/L (8-16); BLOOD UREA NITROGEN 10 mg/dL (7-26); BUN/CREATININE RATIO 16 (6-25); CALCIUM 9.9 mg/dL (8.4-10.2); CARBON DIOXIDE 32 mmol/L (22-29); CHLORIDE 102 mmol/L (98-107); CREATININE, SERUM 0.61 mg/dL (0.72-1.25); EST GLOMERULAR FILTRATION RATE > 60 ML/MIN (60-); GLUCOSE 88 mg/dL (74-118); POTASSIUM 4.4 mmol/L (3.5-5.1); SODIUM 142 mmol/L (136-145)
[2017-07-12 18:29] VITALS: BP 129/87
[2017-07-12 18:30] VITALS: BP 129/87
[2017-07-12 19:51] VITALS: BP 129/87
[2017-07-12 20:00] VITALS: BP 129/87
[2017-07-12 20:31] VITALS: BP 130/90
[2017-07-12] MEDS ORDERED: ZOLPIDEM TARTRATE 5 MG TAB PO PRN (21:00)
[2017-07-12] MEDS ORDERED: SODIUM CHLORIDE 0.9% 50ML 50 ML ONE (22:37)
[2017-07-12] MEDS ORDERED: IOPAMIDOL 370 MG/ML 200 ML INFUS..BTL INJ ONE (22:37)
--- NOTE | 2017-07-12 22:48 | Diagnostic Imaging Report ---
EXAM: CT Chest WITH contrast 07/12/2017 4:56 PM INDICATION: Pulmonary embolism COMPARISON: None TECHNIQUE: Chest was scanned utilizing a multidetector helical scanner from the lung apex through the level of the diaphragm after administration of IV contrast. Thin section reconstructions were obtained with special concentration on the pulmonary arteries. Coronal and sagittal reformations were obtained. Pulmonary embolism protocol was performed. IV CONTRAST: 72 cc of Isovue-370 RADIATION DOSE: Total DLP: 485.96 mGy*cm Estimated effective dose: (DLP x 0.014 x size factor) mSv COMPLICATIONS: None FINDINGS: LINES/ TUBES: Left-sided pacemaker with lead overlying the right atrium and right ventricle. LUNGS AND AIRWAYS: No filling defect is identified within the pulmonary arteries to the segmental level. Bibasilar atelectasis left greater than right. Airways are normal. PLEURA: Small bilateral pleural effusions right greater than left. HEART AND MEDIASTINUM: The thyroid gland is normal. No mediastinal, hilar or axillary lymphadenopathy. The heart is normal in size.. There is no pericardial effusion. Aorta and coronary arteries are unremarkable.. Main pulmonary artery measures 2.5 cm in diameter , within normal limits. UPPER ABDOMEN: Limited non-contrast views of the upper abdomen show no abnormality within the visualized liver, spleen, pancreas, or kidneys. The adrenal glands are normal. BONES: There are degenerative changes in the thoracic spine. SOFT TISSUES: Unremarkable. IMPRESSION: No evidence of pulmonary embolism. Minimal bibasilar atelectasis and pleural effusions. Signed by: Dr. Bashir Robert M.D. on 07/12/2017 10:45 PM
[2017-07-12 23:55] VITALS: BP 120/80
[2017-07-13] MEDS: CEFTRIAXONE SOD 1 GM VIAL IV SCH (02:43)
[2017-07-13 05:20] VITALS: BP 120/80
[2017-07-13 06:49] LABS: ALANINE AMINOTRANSFERASE 28 IU/L (0-55); ALBUMIN 3.2 g/dL (3.5-5.0); ALKALINE PHOSPHATASE 75 IU/L (40-150); ANION GAP 9.4 mmol/L (8-16); BLOOD UREA NITROGEN 12 mg/dL (7-26); BUN/CREATININE RATIO 19 (6-25); CALCIUM 9.9 mg/dL (8.4-10.2); CARBON DIOXIDE 35 mmol/L (22-29); CHLORIDE 101 mmol/L (98-107); CREATININE, SERUM 0.64 mg/dL (0.72-1.25); EST GLOMERULAR FILTRATION RATE > 60 ML/MIN (60-); GLUCOSE 84 mg/dL (74-118); POTASSIUM 4.4 mmol/L (3.5-5.1); SODIUM 141 mmol/L (136-145)
[2017-07-13] MEDS: PROPAFENONE HCL 150 MG TAB PO SCH ×2 (06:49→16:20)
[2017-07-13 08:03] VITALS: BP_SYST 110; BP_DIAS 77; BP_DIAS 80
[2017-07-13] MEDS: PANTOPRAZOLE SOD 40 MG TABEC PO SCH ×2 (08:15→16:45)
[2017-07-13] MEDS: SUCRALFATE 1 GM/10 ML SUSP PO SCH ×3 (08:15→16:45)
[2017-07-13] MEDS ORDERED: POLYETHYLENE GLYCOL 3350 17 GM PACK PEG SCH (09:00)
[2017-07-13] MEDS ORDERED: ASPIRIN 81 MG CHEW TAB PO SCH (09:00)
[2017-07-13] MEDS ORDERED: CLOPIDOGREL BISULFATE 75 MG TAB PO SCH (09:00)
--- NOTE | 2017-07-13 09:04 | Consultation ---
DATE OF CONSULTATION: PULMONARY CRITICAL CARE CONSULTATION HISTORY OF PRESENT ILLNESS: The patient is a 62-year-old man. He has a history of severe muscular dystrophy. He has difficulty swallowing and has required a PEG. He has had respiratory problems in the past. He attempted a BiPAP at home, as well as a noninvasive ventilator, but has been unable to tolerate the mask at home. At the beginning of the month, he required hospitalization at [facility] because of a piece of food that lodged in his esophagus. He required an EGD to have the food removed. He also had some esophagitis. After going home, he noticed more difficulty breathing. He also in retrospect said that he had some breathing problems after the surgery, and that he did not notify the staff. He does not complain of cough or phlegm. He does not have chest pain. PAST MEDICAL HISTORY 1. Muscular dystrophy. 2. Dysphagia. 3. Atrial fibrillation. PAST SURGICAL HISTORY 1. Status post pacemaker placement. 2. Status post PEG placement. SOCIAL HISTORY: The patient lives at home. His is working with him at home. He does not drink alcohol. ALLERGIES: THE PATIENT IS ALLERGIC TO CODEINE. FAMILY HISTORY: Noncontributory. REVIEW OF SYSTEMS: He does not complain of headache. There are no fever or chills. He is not having any neck pain. He has no chest pain. He does have difficulty breathing. He has a PEG in place, but no abdominal pain. He is having no leg pain. PHYSICAL EXAMINATION VITALS: The patient is afebrile. The blood pressure is 120/80. HEENT: Shows no facial swelling or erythema. The nasal mucosa is normal. The oropharynx is normal. LYMPHATIC: Shows no submandibular, cervical or supraclavicular adenopathy. NECK: Shows no JVD or thyromegaly. There is no nuchal rigidity. CARDIAC: Reveals a regular rate and rhythm with a normal S1 and S2. There are no murmurs or rubs. LUNGS: Auscultation of the lungs reveals clear breath sounds bilaterally. There is no wheezing. ABDOMEN: Soft and nontender. There is a feeding tube in place. EXTREMITIES: There is no leg edema or calf tenderness. LABORATORY DATA: The blood gas is 7.46, CO2 46 and O2 155. His carbon dioxide is 33. His vital capacity is 1.2 L. RADIOGRAPHIC DATA: The chest x-ray shows no active disease. IMPRESSION 1. Sfyje-hw-jykxyoa respiratory failure related to neuromuscular disease. 2. Recent exacerbation of neuromuscular disease from anesthesia. 3. Chronic dysphagia and aspiration. 4. Muscular dystrophy. 5. Atrial fibrillation. PLAN 1. Because the patient has worsening dyspnea and neuromuscular disease, he is at risk for apnea or respiratory failure without warning. 2. I discussed this with the patient and the . They are considering DNR status. 3. I emphasized the importance of using the BiPAP or noninvasive ventilator, but the patient continues to have problems. 4. Monitor vital capacities. If these vital capacities fall, he may require intubation. 5. CT scan of the chest to rule out of pulmonary embolism. 6. Neurology consultation. Job#: [id number] SHEILA
[2017-07-13] MEDS ORDERED: POTASSIUM CHLORIDE 10 MEQ TABCR GT ONE (09:30)
[2017-07-13] MEDS ORDERED: FUROSEMIDE INJ 10 MG/ML 2 ML VIAL IV ONE (09:30)
--- NOTE | 2017-07-13 10:34 | Discharge Summary ---
OBSERVATION CONSULTANTS: Dr. Josias Rae PCP: Dr. Weston Haney FINAL DIAGNOSES 1. Progressive muscular dystrophy. 2. Shortness of breath. 3. Fluid retention, minimal. A 62-year-old male with muscular dystrophy, progressive. Patient has progressive disease. He was anxious and having shortness of breath when he visited Dr. Josias Rae. His saturation was at 97% to 100% on room air. Patient is stable. CT scan of the chest with contrast, there is no pulmonary embolism. The patient does have minimal bibasilar effusion most likely secondary to his muscular dystrophy and tube feeding. Patient is otherwise stable. He is comfortable now. He will go home with home health. Discharge medications Lasix 40 mg per tube once a day and potassium 10 mEq per tube once a day. He will resume his other home medications. The patient is otherwise stable. Job#: [id number] SHEILA
[2017-07-13 12:34] VITALS: BP 101/69
[2017-07-13 16:20] VITALS: BP 96/64
[2017-07-13 18:17] VITALS: BP 114/83
== END 2017-07-13 18:39 | disposition home or self-care (01) ==
LOC: IMCU 13:35
PROVIDERS: ADMIT Internal Medicine; ATTEND Internal Medicine
DX: G71.0 Muscular dystrophy (principal); J96.21 Acute and chronic respiratory failure with hypoxia; I48.91 Unspecified atrial fibrillation; Z93.1 Gastrostomy status; Z88.5 Allergy status to narcotic agent; R13.10 Dysphagia, unspecified; R60.9 Edema, unspecified
CPT/HCPCS: 36415 ×2; 71046; 71260; 80053 ×2; 82805; 85025; 97116; 97161; G0378 ×2; J0696; J1940; Q9967; S0164; 36600

== ENCOUNTER → 2017-07-31 | Outpatient (CLI) | payer OTHER ==
[~2017-07-31] MED LIST changes: +DIATRIZOATE MEGL/DIATRIZOA SOD 30 ML BTL PO ONE; +IOPAMIDOL 300 MG/ML 15ML VIAL IT ONE
--- NOTE | 2017-07-31 19:22 | Diagnostic Imaging Report ---
Exam: Fluoroscopic evaluation of gastric tube Clinical History: Evaluate gastric tube. Unable to obtain fluid out of balloon Comparison: None. DISCUSSION: 3 limited abdominal films with emphasis in the left abdomen were performed after injection of approximately 15 cc of Gastrografin and Isovue 300 to fill the gastric tube balloon. Despite multiple injections, there was failure to fill the balloon, with part of the contrast noted in the stomach lumen. IMPRESSION: 1. Findings consistent with gastric tube balloon rupture. The staff physician below has personally reviewed this exam on the date of dictation. Signed by: Dr. Eron Mauro M.D. on 07/31/2017 7:19 PM
== END ==
LOC: RAD 15:03
PROVIDERS: ATTEND Internal Medicine Gastroenterology
DX: R13.10 Dysphagia, unspecified (principal)
CPT/HCPCS: 74018; Q9967

== ENCOUNTER → 2017-08-02 | Outpatient (CLI) | payer OTHER ==
[~2017-08-02] MED LIST changes: -DIATRIZOATE MEGL/DIATRIZOA SOD 30 ML BTL PO ONE; +LIDOCAINE HCL 1% LOCAL INJ 20 ML VIAL ONE
--- NOTE | 2017-08-02 14:40 | Diagnostic Imaging Report ---
PROCEDURE:GASTRIC TUBE PLACEMENT W/FLUORO COMPARISON:Abdominal radiograph 07/31/2017. Preprocedure diagnosis: Malfunctioning gastrostomy catheter Post procedure diagnosis: Functioning gastrostomy catheter Calculus Tutor: Weston Montes M.D. Fluoroscopy time: 44 seconds Air Kerma: 6.46 mGy Contrast used: 20 cc Isovue-300 Specimens: 20 Ivorian MARY GRACE Oconnor gastrostomy, discarded Implant/graft: 20 Ivorian MARY GRACE Oconnor gastrostomy Sedation/anesthesia: None patient's heart rate and pulse oximetry were continuously monitored by the interventional radiology nurse. Blood pressure was monitored at 5 minute intervals. Estimated blood loss: Minimal Blood products administered: None Condition at completion: Stable Disposition: Discharge home Procedure in detail: Informed consent for the procedure was obtained from the patient and documented in the medical record after discussion of risks and benefits. The patient was placed in the supine position on the fluoroscopic table. The left abdomen and existing gastrostomy catheter were prepped and draped in standard sterile fashion. Air was freely aspirated through the balloon port of the existing gastrostomy catheter, confirming balloon rupture. A 5 Ivorian angled catheter was advanced through the lumen of the indwelling gastrostomy and into the gastric antrum, with position confirmed by injection of dilute contrast material. An Amplatz superstiff wire was advanced through the catheter and coiled within the gastric antrum. The catheter and existing gastrostomy were then removed over the wire. A new 20 Ivorian, 3.5 cm MARY GRACE Oconnor gastrostomy was then advanced over the wire and into the gastric body. The balloon was inflated with 4.5 cc sterile saline at patient request. The wire was removed. Injection of dilute contrast material confirmed appropriate position of the catheter within the gastric body. The catheter was than flushed copiously with sterile saline and capped. A sterile dressing was applied. The patient tolerated the procedure without immediate complication. CONCLUSION: Successful percutaneous gastrostomy catheter exchange under fluoroscopic guidance. The new catheter is a 20 Ivorian 3.5 cm MARY GRACE Oconnor and may be used immediately. Dictated by: Weston Montes M.D. on 08/02/2017 at 14:44 Electronically approved by: Weston Montes M.D. on 08/02/2017 at 14:44
== END ==
LOC: DX 06:31
PROVIDERS: ATTEND Internal Medicine Gastroenterology
DX: K94.23 Gastrostomy malfunction (principal)
CPT/HCPCS: 49440; J2001; Q9967

== ENCOUNTER 2017-09-18 17:44 | Emergency (ER) | payer OTHER ==
[~2017-09-18] VITALS: Ht 177.8 cm; Wt 63.5 kg
[~2017-09-18 17:44] MED LIST changes: -IOPAMIDOL 300 MG/ML 15ML VIAL IT ONE; -LIDOCAINE HCL 1% LOCAL INJ 20 ML VIAL ONE
[2017-09-18] MEDS ORDERED: ONDANSETRON HCL INJ 2 MG/ML VIAL IV STA (18:21)
[2017-09-18] MEDS ORDERED: SODIUM CHLORIDE 0.9% 1000ML 1,000 ML IV STA (18:21)
--- NOTE | 2017-09-18 18:56 | Diagnostic Imaging Report ---
PROCEDURE:X-RAY ABDOMEN - KUB COMPARISON:None. INDICATIONS:abdominal pain, vomiting FINDINGS: Nonobstructive bowel gas pattern. No air-filled, dilated loops of bowel. G-tube projects over the left mid abdomen. No abnormal calcifications. No acute bony abnormalities. Lung bases are clear. Distal portion of pacemaker wires project in the expected region of the right atrium and right ventricle. CONCLUSION: Nonobstructive bowel gas pattern. No air-filled, dilated loops of bowel. Eron Mauro M.D. Dictated by: Eron Mauro M.D. on 09/18/2017 at 19:02 Electronically approved by: Eron Mauro M.D. on 09/18/2017 at 19:02
[2017-09-18] MEDS ORDERED: DIATRIZOATE MEGL/DIATRIZOA SOD 30 ML BTL PO ONE (18:57)
--- NOTE | 2017-09-18 19:23 | Diagnostic Imaging Report ---
EXAM: XR CHEST 2 VIEWS DATE: 09/18/2017 6:25 PM INDICATION: Pain COMPARISON: 07/12/2017 CT, 07/12/2017 radiograph FINDINGS: Lines and Tubes: Dual-lead left chest wall pacemaker with leads overlying right atrium and right ventricle, stable. Heart and Mediastinum: No acute cardiomediastinal findings. Lungs and Pleura: No significant pleural effusion, pneumothorax, or focal consolidation. Minimal opacities in the lung bases statistically represent atelectasis, however, infectious process could have a similar appearance. Bones and Soft Tissues: No acute findings. IMPRESSION: 1. No acute cardiopulmonary findings. Signed by: Dr. Pacheco Dupree MD on 09/18/2017 7:20 PM
[2017-09-18 20:06] LABS: BASOPHILS % 0.5 % (0.0-1.0); EOSINOPHILS % 0.5 % (0.0-6.0); HEMATOCRIT 49.6 % (38.2-49.6); HEMOGLOBIN 16.8 g/dL (14.0-18.0); LYMPHOCYTES # (AUTO) 1.6 (1.0-3.2); MEAN CORPUSCULAR HEMOGLOBIN 30.8 pg (28-32); MEAN CORPUSCULAR HGB CONC 33.9 g/dL (31-35); MEAN CORPUSCULAR VOLUME 90.8 fL (81-99); MONOCYTES # (AUTO) 0.6 (0.2-0.8); MONOCYTES % 10.2 % (4.4-11.3); NEUTROPHILS # (AUTO) 3.9 (2.1-6.9); NEUTROPHILS % 62.6 % (38.7-80.0); PLATELET COUNT 185 x10e3/uL (140-360); RED BLOOD COUNT 5.46 x10e6/uL (4.3-5.7); RED CELL DISTRIBUTION WIDTH 12.7 % (11.7-14.4)
[2017-09-18 20:23] LABS: ALANINE AMINOTRANSFERASE 51 IU/L (0-55); ALBUMIN 3.7 g/dL (3.5-5.0); ALBUMIN/GLOBULIN RATIO 0.9 (0.8-2.0); ALKALINE PHOSPHATASE 112 IU/L (40-150); ANION GAP 15.5 mmol/L (8-16); BLOOD UREA NITROGEN 16 mg/dL (7-26); BUN/CREATININE RATIO 22 (6-25); CALCIUM 10.7 mg/dL (8.4-10.2); CARBON DIOXIDE 30 mmol/L (22-29); CHLORIDE 94 mmol/L (98-107); CREATININE, SERUM 0.73 mg/dL (0.72-1.25); EST GLOMERULAR FILTRATION RATE > 60 ML/MIN (60-); GLUCOSE 147 mg/dL (74-118); POTASSIUM 4.5 mmol/L (3.5-5.1); SODIUM 135 mmol/L (136-145)
[2017-09-18 20:24] LABS: AMYLASE 62 U/L (25-125); LIPASE 14 U/L (8-78)
[2017-09-18 21:29] LABS: BILIRUBIN,URINE NEGATIVE (NEGATIVE); CLARITY,URINE CLEAR (CLEAR); COLOR,URINE YELLOW (YELLOW); KETONES,URINE NEGATIVE (NEGATIVE); LEUKOCYTE ESTERASE ,URINE NEGATIVE (NEGATIVE); NITRITE,URINE NEGATIVE (NEGATIVE); PROTEIN,URINE DIPSTICK NEGATIVE (NEGATIVE); URINE UROBILINOGEN 1 mg/dL (0.2 - 1)
[2017-09-18 21:43] LABS: AMORPHOUS SEDIMENT,URINE MANY (FEW); BACTERIA,URINE FEW /HPF; MUCUS,URINE FEW (RARE); RBC,URINE 0-5 /HPF (0-5); WBC,URINE (MAN) 0-5 /HPF (0-5)
--- NOTE | 2017-09-18 22:27 | Diagnostic Imaging Report ---
EXAM: CT Abdomen and Pelvis WITH contrast INDICATION: Small bowel obstruction COMPARISON: None. TECHNIQUE: Abdomen and pelvis were scanned utilizing a multidetector helical scanner from the lung base to the pubic symphysis after administration of IV contrast. Coronal and sagittal reformations were obtained. Routine protocol was performed. Scan was performed when during portal venous phase. IV CONTRAST: 100 mL of Isovue-370 ORAL CONTRAST: Gastrografin RADIATION DOSE: Total DLP: 362.58 mGy*cm Estimated effective dose: (DLP x 0.015 x size factor) mSv COMPLICATIONS: None FINDINGS: LINES and TUBES: Gastrostomy tube is visualized in good position. Partially visualized pacemaker wires are present in the right atrium and right ventricle. LOWER THORAX: There is bibasilar atelectasis. HEPATOBILIARY: No focal hepatic lesions. No biliary ductal dilation. GALLBLADDER: No radio-opaque stones or sludge. No wall thickening. SPLEEN: No splenomegaly. PANCREAS: No focal masses or ductal dilatation. ADRENALS: No adrenal nodules KIDNEYS/URETERS: Kidneys enhance symmetrically. No hydronephrosis. No cystic or solid mass lesions. No stones. GI TRACT: No abnormal distention, wall thickening, or evidence of bowel obstruction. Appendix is normal. PELVIC ORGANS/BLADDER: Unremarkable. LYMPH NODES: No lymphadenopathy. VESSELS: There is mild atherosclerotic disease in the aorta and major arterial branches. PERITONEUM / RETROPERITONEUM: No free air or fluid. BONES: Unremarkable. SOFT TISSUES: Unremarkable. IMPRESSION: 1. No evidence of acute intra-abdominal or pelvic abnormality. 2. Specifically no evidence of small bowel obstruction. Signed by: Dr. Bashir Robert M.D. on 09/18/2017 10:24 PM
[2017-09-18] MEDS ORDERED: IOPAMIDOL 370 MG/ML 200 ML INFUS..BTL INJ ONE (22:33)
[2017-09-18] MEDS ORDERED: SODIUM CHLORIDE 0.9% 50ML 50 ML ONE (22:33)
[2017-09-18 22:41] VITALS: BP 126/87
== END 2017-09-18 22:53 | disposition home or self-care (01) ==
LOC: ER 17:44
DX: R10.9 Unspecified abdominal pain (principal); R11.0 Nausea; I48.91 Unspecified atrial fibrillation; G71.11 Myotonic muscular dystrophy
CPT/HCPCS: 36415; 71046; 74018; 74177; 80053; 81001; 82150; 83690; 85025; 87086; 99284; J2405; J7030; Q9967